=== PATIENT | male | born 1955 | race African-American/Black ===

== ENCOUNTER 2021-12-01 18:18 | Emergency (ER) | payer OTHER ==
[2021-12-01 18:42] VITALS: BP 166/66; PULSE 70; RESP 20; TEMP 98.7; BMI 30.1
== END 2021-12-01 22:04 | disposition short-term general hospital (02) ==
LOC: JER 18:18
DX: R22.41 Localized swelling, mass and lump, right lower limb (principal); R10.9 Unspecified abdominal pain
CPT/HCPCS: 0241U-QW; 74176-TC; 82962; 93005; 93010; 93971-TC; 99285-25

== ENCOUNTER 2021-12-01 22:21 | Inpatient (IN) | payer OTHER ==
[2021-12-01 15:35] VITALS: BMI 30.4
[~2021-12-01 22:21] MED LIST: ACETAMINOPHEN 325 MG TABLET (FP) PO PRN; BENZOCAINE/MENTHOL (CHLORASEPTIC ) LOZENGE MM PRN; BISMUTH SUBSALICYLATE 524 MG/30 ML PO PRN; DICYCLOMINE HCL 10 MG CAPSULE PO PRN; IBUPROFEN 400 MG TABLET (FP) PO PRN; IBUPROFEN 600 MG TABLET (FP) PO PRN; LOPERAMIDE HCL 2 MG CAPSULE PO PRN; MAGNESIUM CITRATE 300 ML BOTTLE PO PRN; MAGNESIUM HYDROX 2400MG/30ML ORAL SUSPENSION 30 ML CUP PO PRN; NALOXONE HCL (KLOXXADO) 8 MG SPRAY NS PRN; NALOXONE HCL 0.4 MG/ML VIAL IM PRN; ONDANSETRON *ODT* 4 MG TABLET SL PRN; P-EPHED 60MG/TRIPROLIDI 2.5MG TABLET PO PRN; guaiFENesin 200 MG/10 ML 10 ML UNIT-DOSE CUPS PO PRN; hydrOXYzine PAMOATE 25 MG CAPSULE (FP) PO PRN
[2021-12-02] MEDS: INSULIN SLIDING SCALE (NOVOLOG) 1 VIAL SQ SCH ×2 (06:20→17:49)
[2021-12-02] MEDS ORDERED: methaDONE HCL 10 MG TABLET PO ONE (10:26)
[2021-12-02] MEDS ORDERED: methaDONE 80 MG, methaDONE 20 MG PO ONE (10:45)
[2021-12-02 10:47] LABS: CALCIUM 9.2 mg/dL (8.5-10.1)
[2021-12-02 10:48] LABS: BLOOD UREA NITROGEN 9.6 mg/dL (7-18)
[2021-12-02 10:50] LABS: CREATININE 0.9 mg/dL (0.55-1.3)
[2021-12-02] MEDS: PRENATAL VITAMINS W/ FOLIC ACID TABLET (FP) PO SCH (10:50)
[2021-12-02 10:51] LABS: TOT PROT 6.3 g/dl (6.4-8.2)
[2021-12-02 10:53] LABS: BILIRUBIN,TOTAL 0.6 mg/dL (0.2-1)
[2021-12-02 10:55] LABS: HEMATOCRIT 36.2 % (35.4-49); HEMOGLOBIN 11.6 GM/dL (11.7-16.9); MCH 26.9 pg (25.7-33.7); MEAN CELL VOLUME 83.9 fl (80-96); MEAN PLT VOLUME 9.9 fl (7.5-11.1); PLATELET COUNT 210 10^3/uL (134-434); RBC 4.32 M/mm3 (4.00-5.60); RDW 15.4 % (11.9-15.9); WHITE BLOOD COUNT 4.8 K/mm3 (4.0-10.0)
[2021-12-02] MEDS ORDERED: diazePAM 5 MG TABLET PO PRN (11:00)
[2021-12-02] MEDS: diazePAM 5 MG TABLET PO SCH ×3 (11:39→22:34)
[2021-12-02] MEDS: THIAMINE HCL 100 MG TABLET (FP) PO SCH (22:34)
[2021-12-03] MEDS ORDERED: methaDONE HCL 10 MG TABLET PO SCH (06:00)
[2021-12-03] MEDS: methaDONE 80 MG, methaDONE 20 MG PO SCH (06:18)
[2021-12-03] MEDS: diazePAM 5 MG TABLET PO SCH ×4 (06:19→22:27)
[2021-12-03] MEDS: INSULIN SLIDING SCALE (NOVOLOG) 1 VIAL SQ SCH ×2 (06:20→17:45)
[2021-12-03] MEDS: metFORMIN HCL 500 MG TABLET (FP) PO SCH (06:20)
[2021-12-03] MEDS: MAG HYDROX/AL HYDROX/SIMETH 30 ML UNIT-DOSE CUP PO PRN ×2 (06:23→22:27)
[2021-12-03] MEDS ORDERED: metFORMIN HCL 500 MG TABLET (FP) PO SCH (10:00)
[2021-12-03] MEDS: PRENATAL VITAMINS W/ FOLIC ACID TABLET (FP) PO SCH (10:32)
[2021-12-03] MEDS: amLODIPine BESYLATE 5 MG TABLET (FP) PO SCH (10:33)
[2021-12-03] MEDS: THIAMINE HCL 100 MG TABLET (FP) PO SCH (22:26)
[2021-12-03] MEDS: MELATONIN 5 MG TABLETS PO PRN (22:27)
[2021-12-04] MEDS: metFORMIN HCL 500 MG TABLET (FP) PO SCH (06:29)
[2021-12-04] MEDS: methaDONE 80 MG, methaDONE 20 MG PO SCH (06:29)
[2021-12-04] MEDS: diazePAM 5 MG TABLET PO SCH ×3 (06:30→22:32)
[2021-12-04] MEDS: INSULIN SLIDING SCALE (NOVOLOG) 1 VIAL SQ SCH ×2 (06:35→16:59)
[2021-12-04] MEDS: PRENATAL VITAMINS W/ FOLIC ACID TABLET (FP) PO SCH (09:06)
[2021-12-04] MEDS: amLODIPine BESYLATE 5 MG TABLET (FP) PO SCH (09:06)
[2021-12-04] MEDS: FAMOTIDINE 20 MG TABLET PO SCH ×2 (12:36→22:31)
[2021-12-04] MEDS ORDERED: metFORMIN HCL 500 MG TABLET (FP) PO SCH (16:30)
[2021-12-04] MEDS: MELATONIN 5 MG TABLETS PO PRN (22:31)
[2021-12-04] MEDS: THIAMINE HCL 100 MG TABLET (FP) PO SCH (22:32)
[2021-12-05] MEDS: diazePAM 5 MG TABLET PO SCH ×2 (06:24→17:47)
[2021-12-05] MEDS: methaDONE 80 MG, methaDONE 20 MG PO SCH (06:24)
[2021-12-05] MEDS: INSULIN SLIDING SCALE (NOVOLOG) 1 VIAL SQ SCH ×2 (06:25→16:57)
[2021-12-05] MEDS: metFORMIN HCL 500 MG TABLET (FP) PO SCH (06:25)
[2021-12-05] MEDS ORDERED: amLODIPine BESYLATE 10 MG TABLET (FP) PO SCH (10:00)
[2021-12-05] MEDS: FAMOTIDINE 20 MG TABLET PO SCH ×2 (10:33→22:33)
[2021-12-05] MEDS: PRENATAL VITAMINS W/ FOLIC ACID TABLET (FP) PO SCH (10:33)
[2021-12-05] MEDS: ASPIRIN 81 MG CHEWABLE TABLETS PO SCH (11:26)
[2021-12-05] MEDS ORDERED: PATIENT'S OWN MEDICATION (NON-FORMULARY) (Lisinopril/Hydrochlorothiazide [Lisinopril-Hctz PO SCH (13:00)
[2021-12-05] MEDS ORDERED: DOCUSATE SODIUM 100 MG CAPSULE (FP) PO PRN (13:00)
[2021-12-05] MEDS ORDERED: ALBUTEROL SO4 HFA INHALER IH PRN (13:56)
[2021-12-05] MEDS ORDERED: HYDROCHLOROTHIAZIDE 25 MG TABLET (FP) PO ONE (14:15)
[2021-12-05] MEDS ORDERED: LISINOPRIL 20 MG TABLET PO ONE (14:15)
[2021-12-05] MEDS: TAMSULOSIN HCL 0.4 MG CAP PO SCH (14:45)
[2021-12-05] MEDS: sitaGLIPtin PHOSPHATE 50 MG TABLET PO SCH (14:46)
[2021-12-05] MEDS: BUDESONIDE/FORMETEROL FUMARATE 160/4.5 mcg INHALER IH SCH ×2 (14:48→22:34)
[2021-12-05] MEDS: AMMONIUM LACTATE 12% CREAM 140 GM TUBE TP SCH (14:49)
[2021-12-05] MEDS ORDERED: LISINOPRIL 5 MG TABLET PO ONE (21:51)
[2021-12-05] MEDS ORDERED: DOCUSATE SODIUM 100 MG CAPSULE (FP) PO SCH (22:00)
[2021-12-05] MEDS: THIAMINE HCL 100 MG TABLET (FP) PO SCH (22:33)
[2021-12-05] MEDS: MELATONIN 5 MG TABLETS PO PRN (22:33)
[2021-12-06] MEDS: methaDONE 80 MG, methaDONE 20 MG PO SCH (05:47)
[2021-12-06] MEDS ORDERED: diazePAM 5 MG TABLET PO ONE (06:00)
[2021-12-06] MEDS: sitaGLIPtin PHOSPHATE 50 MG TABLET PO SCH (06:16)
[2021-12-06] MEDS: metFORMIN HCL 500 MG TABLET (FP) PO SCH (06:16)
[2021-12-06] MEDS ORDERED: ERGOCALCIFEROL (VIT D2) 50,000 UNIT (1.25 MG) CAPSULE PO SCH (10:00)
[2021-12-06] MEDS ORDERED: HYDROCHLOROTHIAZIDE 25 MG TABLET (FP) PO SCH (10:00)
[2021-12-06] MEDS ORDERED: LISINOPRIL 20 MG TABLET PO SCH (10:00)
[2021-12-06] MEDS: PRENATAL VITAMINS W/ FOLIC ACID TABLET (FP) PO SCH (10:32)
[2021-12-06] MEDS: BUDESONIDE/FORMETEROL FUMARATE 160/4.5 mcg INHALER IH SCH (10:33)
[2021-12-06] MEDS: AMMONIUM LACTATE 12% CREAM 140 GM TUBE TP SCH (10:33)
[2021-12-06] MEDS: FAMOTIDINE 20 MG TABLET PO SCH (10:33)
[2021-12-06] MEDS: ASPIRIN 81 MG CHEWABLE TABLETS PO SCH (10:33)
[2021-12-06] MEDS: TAMSULOSIN HCL 0.4 MG CAP PO SCH (10:35)
[2021-12-06 17:33] VITALS: BP 140/50; PULSE 62; RESP 18; TEMP 97.3
== END 2021-12-06 18:10 | disposition other institution (70) | DRG 897 ==
LOC: YASAS 22:21 → Y6N 22:38 → UNDOADMIN 22:38
PROVIDERS: ADMIT Allergy & Immunology; ATTEND Surgery
PROC: HZ2ZZZZ Detoxification Services for Substance Abuse Treatment (ICD-10-PCS; principal; 2021-12-01)
DX: F10.230 Alcohol dependence with withdrawal, uncomplicated (principal); F11.20 Opioid dependence, uncomplicated; F13.2 Sedative, hypnotic or anxiolytic-related dependence; F17.210 Nicotine dependence, cigarettes, uncomplicated; I10 Essential (primary) hypertension; E11.9 Type 2 diabetes mellitus without complications; Z79.84 Long term (current) use of oral hypoglycemic drugs; K21.9 Gastro-esophageal reflux disease without esophagitis; R26.89 Other abnormalities of gait and mobility; R22.41 Localized swelling, mass and lump, right lower limb
CPT/HCPCS: 36415; 80053; 82962; 85027; 86780; 87811; C9803-CS; U0003; U0005

== ENCOUNTER 2021-12-06 15:31 | Inpatient (IN) | payer OTHER ==
[2021-12-06] MEDS ORDERED: IBUPROFEN 400 MG TABLET (FP) PO PRN (18:26)
[2021-12-06] MEDS ORDERED: MAG HYDROX/AL HYDROX/SIMETH 30 ML UNIT-DOSE CUP PO PRN (18:26)
[2021-12-06] MEDS ORDERED: BENZOCAINE/MENTHOL (CHLORASEPTIC ) LOZENGE MM PRN (18:26)
[2021-12-06] MEDS ORDERED: MAGNESIUM HYDROX 2400MG/30ML ORAL SUSPENSION 30 ML CUP PO PRN (18:26)
[2021-12-06] MEDS ORDERED: guaiFENesin 200 MG/10 ML 10 ML UNIT-DOSE CUPS PO PRN (18:26)
[2021-12-06] MEDS ORDERED: MAGNESIUM CITRATE 300 ML BOTTLE PO PRN (18:26)
[2021-12-06] MEDS ORDERED: NICOTINE 10 MG CARTRIDGE (INHALER) IH PRN (18:26)
[2021-12-06] MEDS ORDERED: LOPERAMIDE HCL 2 MG CAPSULE PO PRN (18:26)
[2021-12-06] MEDS ORDERED: P-EPHED 60MG/TRIPROLIDI 2.5MG TABLET PO PRN (18:26)
[2021-12-06] MEDS ORDERED: ALBUTEROL SO4 HFA INHALER IH PRN (18:41)
[2021-12-06] MEDS: hydrOXYzine PAMOATE 25 MG CAPSULE (FP) PO PRN (21:44)
[2021-12-06] MEDS: MELATONIN 5 MG TABLETS PO SCH (21:45)
[2021-12-06] MEDS: THIAMINE HCL 100 MG TABLET (FP) PO SCH (21:45)
[2021-12-06] MEDS: BUDESONIDE/FORMETEROL FUMARATE 160/4.5 mcg INHALER IH SCH (21:47)
[2021-12-07] MEDS ORDERED: methaDONE HCL 40 MG DISPERSABLE TABLET PO SCH (06:00)
[2021-12-07] MEDS: metFORMIN HCL 500 MG TABLET (FP) PO SCH (06:17)
[2021-12-07] MEDS: methaDONE 80 MG, methaDONE 20 MG PO SCH (06:17)
[2021-12-07] MEDS: sitaGLIPtin PHOSPHATE 50 MG TABLET PO SCH (06:20)
[2021-12-07] MEDS: TAMSULOSIN HCL 0.4 MG CAP PO SCH (09:27)
[2021-12-07] MEDS: DOCUSATE SODIUM 100 MG CAPSULE (FP) PO SCH (09:27)
[2021-12-07] MEDS: PRENATAL VITAMINS W/ FOLIC ACID TABLET (FP) PO SCH (09:28)
[2021-12-07] MEDS: FAMOTIDINE 20 MG TABLET PO SCH (09:28)
[2021-12-07] MEDS: HYDROCHLOROTHIAZIDE 25 MG TABLET (FP) PO SCH (09:28)
[2021-12-07] MEDS: NICOTINE 7 MG/24 HOURS TOPICAL PATCH TD SCH (09:28)
[2021-12-07] MEDS ORDERED: PATIENT'S OWN MEDICATION (NON-FORMULARY) (Lisinopril/Hydrochlorothiazide [Lisinopril-Hctz PO SCH (10:00)
[2021-12-07] MEDS ORDERED: PATIENT'S OWN MEDICATION (NON-FORMULARY) (Ammonium Lactate Cream 1 APPLIC Tube) TP SCH (10:00)
[2021-12-07] MEDS: BUDESONIDE/FORMETEROL FUMARATE 160/4.5 mcg INHALER IH SCH ×2 (10:11→21:23)
[2021-12-07] MEDS: THIAMINE HCL 100 MG TABLET (FP) PO SCH (21:23)
[2021-12-07] MEDS: hydrOXYzine PAMOATE 25 MG CAPSULE (FP) PO PRN (21:23)
[2021-12-07] MEDS: MELATONIN 5 MG TABLETS PO SCH (21:23)
[2021-12-07] MEDS: ACETAMINOPHEN 325 MG TABLET (FP) PO PRN (21:24)
[2021-12-08] MEDS: methaDONE 80 MG, methaDONE 20 MG PO SCH (06:36)
[2021-12-08] MEDS: sitaGLIPtin PHOSPHATE 50 MG TABLET PO SCH (06:36)
[2021-12-08] MEDS: metFORMIN HCL 500 MG TABLET (FP) PO SCH (06:36)
[2021-12-08] MEDS: PRENATAL VITAMINS W/ FOLIC ACID TABLET (FP) PO SCH (09:47)
[2021-12-08] MEDS: FAMOTIDINE 20 MG TABLET PO SCH (09:47)
[2021-12-08] MEDS: HYDROCHLOROTHIAZIDE 25 MG TABLET (FP) PO SCH (09:47)
[2021-12-08] MEDS: DOCUSATE SODIUM 100 MG CAPSULE (FP) PO SCH (09:47)
[2021-12-08] MEDS: TAMSULOSIN HCL 0.4 MG CAP PO SCH (09:47)
[2021-12-08] MEDS: BUDESONIDE/FORMETEROL FUMARATE 160/4.5 mcg INHALER IH SCH ×2 (09:48→21:46)
[2021-12-08] MEDS: NICOTINE 7 MG/24 HOURS TOPICAL PATCH TD SCH (09:49)
[2021-12-08] MEDS: hydrOXYzine PAMOATE 25 MG CAPSULE (FP) PO PRN (21:45)
[2021-12-08] MEDS: THIAMINE HCL 100 MG TABLET (FP) PO SCH (21:46)
[2021-12-08] MEDS: MELATONIN 5 MG TABLETS PO SCH (21:46)
[2021-12-09] MEDS: metFORMIN HCL 500 MG TABLET (FP) PO SCH (06:33)
[2021-12-09] MEDS: sitaGLIPtin PHOSPHATE 50 MG TABLET PO SCH (06:33)
[2021-12-09] MEDS: methaDONE 80 MG, methaDONE 20 MG PO SCH (06:33)
[2021-12-09] MEDS: ACETAMINOPHEN 325 MG TABLET (FP) PO PRN (06:36)
[2021-12-09] MEDS: FAMOTIDINE 20 MG TABLET PO SCH (09:46)
[2021-12-09] MEDS: DOCUSATE SODIUM 100 MG CAPSULE (FP) PO SCH (09:46)
[2021-12-09] MEDS: HYDROCHLOROTHIAZIDE 25 MG TABLET (FP) PO SCH (09:46)
[2021-12-09] MEDS: TAMSULOSIN HCL 0.4 MG CAP PO SCH (09:46)
[2021-12-09] MEDS: NICOTINE 7 MG/24 HOURS TOPICAL PATCH TD SCH (09:47)
[2021-12-09] MEDS: PRENATAL VITAMINS W/ FOLIC ACID TABLET (FP) PO SCH (09:47)
[2021-12-09] MEDS: BUDESONIDE/FORMETEROL FUMARATE 160/4.5 mcg INHALER IH SCH ×2 (09:47→21:25)
[2021-12-09] MEDS ORDERED: NICOTINE 7 MG/24 HOURS TOPICAL PATCH TD PRN (13:18)
[2021-12-09] MEDS: hydrOXYzine PAMOATE 25 MG CAPSULE (FP) PO PRN (21:24)
[2021-12-09] MEDS: THIAMINE HCL 100 MG TABLET (FP) PO SCH (21:25)
[2021-12-09] MEDS: MELATONIN 5 MG TABLETS PO SCH (21:25)
[2021-12-10] MEDS: methaDONE 80 MG, methaDONE 20 MG PO SCH (06:41)
[2021-12-10] MEDS: metFORMIN HCL 500 MG TABLET (FP) PO SCH (06:41)
[2021-12-10] MEDS: sitaGLIPtin PHOSPHATE 50 MG TABLET PO SCH (06:41)
[2021-12-10] MEDS: BUDESONIDE/FORMETEROL FUMARATE 160/4.5 mcg INHALER IH SCH ×2 (10:28→21:22)
[2021-12-10] MEDS: PRENATAL VITAMINS W/ FOLIC ACID TABLET (FP) PO SCH (10:28)
[2021-12-10] MEDS: HYDROCHLOROTHIAZIDE 25 MG TABLET (FP) PO SCH (10:29)
[2021-12-10] MEDS: TAMSULOSIN HCL 0.4 MG CAP PO SCH (10:29)
[2021-12-10] MEDS: FAMOTIDINE 20 MG TABLET PO SCH ×2 (10:29→21:21)
[2021-12-10] MEDS: DOCUSATE SODIUM 100 MG CAPSULE (FP) PO SCH (10:29)
[2021-12-10] MEDS: ASPIRIN 81 MG CHEWABLE TABLETS PO SCH (15:07)
[2021-12-10] MEDS: MELATONIN 5 MG TABLETS PO SCH (21:20)
[2021-12-10] MEDS: THIAMINE HCL 100 MG TABLET (FP) PO SCH (21:20)
[2021-12-10] MEDS: hydrOXYzine PAMOATE 25 MG CAPSULE (FP) PO PRN (21:21)
[2021-12-10] MEDS: ACETAMINOPHEN 325 MG TABLET (FP) PO PRN (21:22)
[2021-12-11] MEDS: metFORMIN HCL 500 MG TABLET (FP) PO SCH (06:34)
[2021-12-11] MEDS: sitaGLIPtin PHOSPHATE 50 MG TABLET PO SCH (06:34)
[2021-12-11] MEDS: methaDONE 80 MG, methaDONE 20 MG PO SCH (06:34)
[2021-12-11] MEDS: ACETAMINOPHEN 325 MG TABLET (FP) PO PRN (06:36)
[2021-12-11] MEDS: TAMSULOSIN HCL 0.4 MG CAP PO SCH (09:44)
[2021-12-11] MEDS: ASPIRIN 81 MG CHEWABLE TABLETS PO SCH (09:44)
[2021-12-11] MEDS: FAMOTIDINE 20 MG TABLET PO SCH ×2 (09:45→21:01)
[2021-12-11] MEDS: HYDROCHLOROTHIAZIDE 25 MG TABLET (FP) PO SCH (09:45)
[2021-12-11] MEDS: PRENATAL VITAMINS W/ FOLIC ACID TABLET (FP) PO SCH (09:45)
[2021-12-11] MEDS: DOCUSATE SODIUM 100 MG CAPSULE (FP) PO SCH (09:45)
[2021-12-11] MEDS: BUDESONIDE/FORMETEROL FUMARATE 160/4.5 mcg INHALER IH SCH ×2 (09:46→21:01)
[2021-12-11] MEDS: METHYL SALICYLATE/MENTHOL OINT 30 GM TUBE TP SCH ×2 (12:39→21:01)
[2021-12-11] MEDS: MELATONIN 5 MG TABLETS PO SCH (21:00)
[2021-12-11] MEDS: THIAMINE HCL 100 MG TABLET (FP) PO SCH (21:00)
[2021-12-11] MEDS: hydrOXYzine PAMOATE 25 MG CAPSULE (FP) PO PRN (21:01)
[2021-12-12] MEDS: metFORMIN HCL 500 MG TABLET (FP) PO SCH (06:40)
[2021-12-12] MEDS: methaDONE 80 MG, methaDONE 20 MG PO SCH (06:40)
[2021-12-12] MEDS: sitaGLIPtin PHOSPHATE 50 MG TABLET PO SCH (06:40)
[2021-12-12] MEDS: ACETAMINOPHEN 325 MG TABLET (FP) PO PRN ×2 (06:42→21:29)
[2021-12-12] MEDS: HYDROCHLOROTHIAZIDE 25 MG TABLET (FP) PO SCH (09:46)
[2021-12-12] MEDS: ASPIRIN 81 MG CHEWABLE TABLETS PO SCH (09:46)
[2021-12-12] MEDS: DOCUSATE SODIUM 100 MG CAPSULE (FP) PO SCH (09:46)
[2021-12-12] MEDS: PRENATAL VITAMINS W/ FOLIC ACID TABLET (FP) PO SCH (09:46)
[2021-12-12] MEDS: FAMOTIDINE 20 MG TABLET PO SCH ×2 (09:46→21:29)
[2021-12-12] MEDS: TAMSULOSIN HCL 0.4 MG CAP PO SCH (09:46)
[2021-12-12] MEDS: BUDESONIDE/FORMETEROL FUMARATE 160/4.5 mcg INHALER IH SCH ×2 (09:47→21:31)
[2021-12-12] MEDS: METHYL SALICYLATE/MENTHOL OINT 30 GM TUBE TP SCH ×2 (09:48→21:29)
[2021-12-12] MEDS: MELATONIN 5 MG TABLETS PO SCH (21:29)
[2021-12-12] MEDS: THIAMINE HCL 100 MG TABLET (FP) PO SCH (21:29)
[2021-12-13] MEDS: methaDONE 80 MG, methaDONE 20 MG PO SCH (06:32)
[2021-12-13] MEDS: sitaGLIPtin PHOSPHATE 50 MG TABLET PO SCH (06:32)
[2021-12-13] MEDS: metFORMIN HCL 500 MG TABLET (FP) PO SCH (06:32)
[2021-12-13] MEDS: ACETAMINOPHEN 325 MG TABLET (FP) PO PRN (06:36)
[2021-12-13] MEDS: HYDROCHLOROTHIAZIDE 25 MG TABLET (FP) PO SCH (09:56)
[2021-12-13] MEDS: hydrOXYzine PAMOATE 25 MG CAPSULE (FP) PO PRN (09:56)
[2021-12-13] MEDS: FAMOTIDINE 20 MG TABLET PO SCH ×2 (09:56→21:32)
[2021-12-13] MEDS: PRENATAL VITAMINS W/ FOLIC ACID TABLET (FP) PO SCH (09:56)
[2021-12-13] MEDS: TAMSULOSIN HCL 0.4 MG CAP PO SCH (09:56)
[2021-12-13] MEDS: ASPIRIN 81 MG CHEWABLE TABLETS PO SCH (09:56)
[2021-12-13] MEDS: DOCUSATE SODIUM 100 MG CAPSULE (FP) PO SCH (09:56)
[2021-12-13] MEDS: METHYL SALICYLATE/MENTHOL OINT 30 GM TUBE TP SCH ×2 (09:57→21:32)
[2021-12-13] MEDS: BUDESONIDE/FORMETEROL FUMARATE 160/4.5 mcg INHALER IH SCH ×2 (09:57→21:32)
[2021-12-13] MEDS: MELATONIN 5 MG TABLETS PO SCH (21:32)
[2021-12-13] MEDS: THIAMINE HCL 100 MG TABLET (FP) PO SCH (21:32)
[2021-12-14] MEDS ORDERED: methaDONE HCL 10 MG TABLET PO SCH (06:00)
[2021-12-14] MEDS: sitaGLIPtin PHOSPHATE 50 MG TABLET PO SCH (06:30)
[2021-12-14] MEDS: metFORMIN HCL 500 MG TABLET (FP) PO SCH (06:30)
[2021-12-14] MEDS: methaDONE 80 MG, methaDONE 20 MG PO SCH (06:30)
[2021-12-14] MEDS: ACETAMINOPHEN 325 MG TABLET (FP) PO PRN ×3 (06:32→21:25)
[2021-12-14] MEDS: ASPIRIN 81 MG CHEWABLE TABLETS PO SCH (09:59)
[2021-12-14] MEDS: FAMOTIDINE 20 MG TABLET PO SCH ×2 (09:59→21:25)
[2021-12-14] MEDS: METHYL SALICYLATE/MENTHOL OINT 30 GM TUBE TP SCH ×2 (09:59→21:48)
[2021-12-14] MEDS: hydrOXYzine PAMOATE 25 MG CAPSULE (FP) PO PRN (09:59)
[2021-12-14] MEDS: TAMSULOSIN HCL 0.4 MG CAP PO SCH (10:00)
[2021-12-14] MEDS: HYDROCHLOROTHIAZIDE 25 MG TABLET (FP) PO SCH (10:00)
[2021-12-14] MEDS: PRENATAL VITAMINS W/ FOLIC ACID TABLET (FP) PO SCH (10:00)
[2021-12-14] MEDS: BUDESONIDE/FORMETEROL FUMARATE 160/4.5 mcg INHALER IH SCH ×2 (10:00→21:49)
[2021-12-14] MEDS: DOCUSATE SODIUM 100 MG CAPSULE (FP) PO SCH (10:00)
[2021-12-14] MEDS: MELATONIN 5 MG TABLETS PO SCH (21:25)
[2021-12-14] MEDS: THIAMINE HCL 100 MG TABLET (FP) PO SCH (21:25)
[2021-12-15] MEDS: methaDONE 80 MG, methaDONE 20 MG PO SCH (06:44)
[2021-12-15] MEDS: metFORMIN HCL 500 MG TABLET (FP) PO SCH (06:44)
[2021-12-15] MEDS: sitaGLIPtin PHOSPHATE 50 MG TABLET PO SCH (06:44)
[2021-12-15] MEDS: ACETAMINOPHEN 325 MG TABLET (FP) PO PRN ×2 (06:45→21:24)
[2021-12-15] MEDS: ASPIRIN 81 MG CHEWABLE TABLETS PO SCH (09:52)
[2021-12-15] MEDS: METHYL SALICYLATE/MENTHOL OINT 30 GM TUBE TP SCH ×2 (09:52→21:23)
[2021-12-15] MEDS: DOCUSATE SODIUM 100 MG CAPSULE (FP) PO SCH (09:53)
[2021-12-15] MEDS: TAMSULOSIN HCL 0.4 MG CAP PO SCH (09:53)
[2021-12-15] MEDS: FAMOTIDINE 20 MG TABLET PO SCH ×2 (09:54→21:23)
[2021-12-15] MEDS: PRENATAL VITAMINS W/ FOLIC ACID TABLET (FP) PO SCH (09:54)
[2021-12-15] MEDS: HYDROCHLOROTHIAZIDE 25 MG TABLET (FP) PO SCH (09:54)
[2021-12-15] MEDS: BUDESONIDE/FORMETEROL FUMARATE 160/4.5 mcg INHALER IH SCH ×2 (09:55→21:42)
[2021-12-15] MEDS: THIAMINE HCL 100 MG TABLET (FP) PO SCH (21:22)
[2021-12-15] MEDS: MELATONIN 5 MG TABLETS PO SCH (21:22)
[2021-12-15] MEDS: hydrOXYzine PAMOATE 25 MG CAPSULE (FP) PO PRN (21:23)
[2021-12-16] MEDS: methaDONE 80 MG, methaDONE 20 MG PO SCH (06:15)
[2021-12-16] MEDS: metFORMIN HCL 500 MG TABLET (FP) PO SCH (06:18)
[2021-12-16] MEDS: sitaGLIPtin PHOSPHATE 50 MG TABLET PO SCH (06:18)
[2021-12-16] MEDS: METHYL SALICYLATE/MENTHOL OINT 30 GM TUBE TP SCH ×2 (10:05→21:20)
[2021-12-16] MEDS: ASPIRIN 81 MG CHEWABLE TABLETS PO SCH (10:05)
[2021-12-16] MEDS: HYDROCHLOROTHIAZIDE 25 MG TABLET (FP) PO SCH (10:06)
[2021-12-16] MEDS: TAMSULOSIN HCL 0.4 MG CAP PO SCH (10:06)
[2021-12-16] MEDS: BUDESONIDE/FORMETEROL FUMARATE 160/4.5 mcg INHALER IH SCH ×2 (10:06→21:19)
[2021-12-16] MEDS: DOCUSATE SODIUM 100 MG CAPSULE (FP) PO SCH (10:06)
[2021-12-16] MEDS: FAMOTIDINE 20 MG TABLET PO SCH ×2 (10:06→21:19)
[2021-12-16] MEDS: PRENATAL VITAMINS W/ FOLIC ACID TABLET (FP) PO SCH (10:07)
[2021-12-16] MEDS: ACETAMINOPHEN 325 MG TABLET (FP) PO PRN (10:08)
[2021-12-16] MEDS: BACLOFEN 10 MG TABLET (FP) PO SCH ×2 (17:02→21:19)
[2021-12-16] MEDS: MELATONIN 5 MG TABLETS PO SCH (21:19)
[2021-12-16] MEDS: THIAMINE HCL 100 MG TABLET (FP) PO SCH (21:19)
[2021-12-16] MEDS: hydrOXYzine PAMOATE 25 MG CAPSULE (FP) PO PRN (21:19)
[2021-12-16] MEDS: SENNOSIDES 8.6MG TABLET (FP) PO SCH (21:20)
[2021-12-16] MEDS: PSYLLIUM 5.85 GM PACKET PO SCH (21:20)
[2021-12-17] MEDS: BACLOFEN 10 MG TABLET (FP) PO SCH ×3 (06:35→21:19)
[2021-12-17] MEDS: metFORMIN HCL 500 MG TABLET (FP) PO SCH (06:36)
[2021-12-17] MEDS: methaDONE 80 MG, methaDONE 20 MG PO SCH (06:36)
[2021-12-17] MEDS: sitaGLIPtin PHOSPHATE 50 MG TABLET PO SCH (07:02)
[2021-12-17] MEDS: ASPIRIN 81 MG CHEWABLE TABLETS PO SCH (09:30)
[2021-12-17] MEDS: METHYL SALICYLATE/MENTHOL OINT 30 GM TUBE TP SCH ×2 (09:30→21:19)
[2021-12-17] MEDS: DOCUSATE SODIUM 100 MG CAPSULE (FP) PO SCH (09:30)
[2021-12-17] MEDS: TAMSULOSIN HCL 0.4 MG CAP PO SCH (09:31)
[2021-12-17] MEDS: FAMOTIDINE 20 MG TABLET PO SCH ×2 (09:31→21:19)
[2021-12-17] MEDS: HYDROCHLOROTHIAZIDE 25 MG TABLET (FP) PO SCH (09:31)
[2021-12-17] MEDS: PSYLLIUM 5.85 GM PACKET PO SCH (09:32)
[2021-12-17] MEDS ORDERED: PSYLLIUM 5.85 GM PACKET PO PRN (09:40)
[2021-12-17] MEDS: PRENATAL VITAMINS W/ FOLIC ACID TABLET (FP) PO SCH (10:00)
[2021-12-17] MEDS: BUDESONIDE/FORMETEROL FUMARATE 160/4.5 mcg INHALER IH SCH ×2 (10:00→21:20)
[2021-12-17] MEDS: MELATONIN 5 MG TABLETS PO SCH (21:19)
[2021-12-17] MEDS: SENNOSIDES 8.6MG TABLET (FP) PO SCH (21:19)
[2021-12-17] MEDS: THIAMINE HCL 100 MG TABLET (FP) PO SCH (21:19)
[2021-12-18] MEDS: methaDONE 80 MG, methaDONE 20 MG PO SCH (06:29)
[2021-12-18] MEDS: metFORMIN HCL 500 MG TABLET (FP) PO SCH (06:30)
[2021-12-18] MEDS: sitaGLIPtin PHOSPHATE 50 MG TABLET PO SCH (06:30)
[2021-12-18] MEDS: BACLOFEN 10 MG TABLET (FP) PO SCH ×3 (06:30→21:21)
[2021-12-18] MEDS: HYDROCHLOROTHIAZIDE 25 MG TABLET (FP) PO SCH (09:56)
[2021-12-18] MEDS: TAMSULOSIN HCL 0.4 MG CAP PO SCH (09:56)
[2021-12-18] MEDS: FAMOTIDINE 20 MG TABLET PO SCH ×2 (09:56→21:22)
[2021-12-18] MEDS: ASPIRIN 81 MG CHEWABLE TABLETS PO SCH (09:56)
[2021-12-18] MEDS: DOCUSATE SODIUM 100 MG CAPSULE (FP) PO SCH (09:56)
[2021-12-18] MEDS: PRENATAL VITAMINS W/ FOLIC ACID TABLET (FP) PO SCH (09:56)
[2021-12-18] MEDS: BUDESONIDE/FORMETEROL FUMARATE 160/4.5 mcg INHALER IH SCH ×2 (09:57→21:22)
[2021-12-18] MEDS: METHYL SALICYLATE/MENTHOL OINT 30 GM TUBE TP SCH ×2 (09:57→21:22)
[2021-12-18] MEDS: THIAMINE HCL 100 MG TABLET (FP) PO SCH (21:21)
[2021-12-18] MEDS: SENNOSIDES 8.6MG TABLET (FP) PO SCH (21:21)
[2021-12-18] MEDS: MELATONIN 5 MG TABLETS PO SCH (21:21)
[2021-12-19] MEDS: metFORMIN HCL 500 MG TABLET (FP) PO SCH (06:26)
[2021-12-19] MEDS: sitaGLIPtin PHOSPHATE 50 MG TABLET PO SCH (06:26)
[2021-12-19] MEDS: methaDONE 80 MG, methaDONE 20 MG PO SCH (06:26)
[2021-12-19] MEDS: BACLOFEN 10 MG TABLET (FP) PO SCH (06:26)
[2021-12-19] MEDS: ASPIRIN 81 MG CHEWABLE TABLETS PO SCH (09:58)
[2021-12-19] MEDS: TAMSULOSIN HCL 0.4 MG CAP PO SCH (09:58)
[2021-12-19] MEDS: PRENATAL VITAMINS W/ FOLIC ACID TABLET (FP) PO SCH (09:58)
[2021-12-19] MEDS: DOCUSATE SODIUM 100 MG CAPSULE (FP) PO SCH (09:58)
[2021-12-19] MEDS: BUDESONIDE/FORMETEROL FUMARATE 160/4.5 mcg INHALER IH SCH ×2 (09:58→21:50)
[2021-12-19] MEDS: FAMOTIDINE 20 MG TABLET PO SCH ×2 (09:58→21:48)
[2021-12-19] MEDS: HYDROCHLOROTHIAZIDE 25 MG TABLET (FP) PO SCH (09:58)
[2021-12-19] MEDS: METHYL SALICYLATE/MENTHOL OINT 30 GM TUBE TP SCH ×2 (09:59→21:49)
[2021-12-19] MEDS: GABAPENTIN 100 MG CAPSULE PO SCH ×2 (14:31→21:48)
[2021-12-19] MEDS: hydrOXYzine PAMOATE 25 MG CAPSULE (FP) PO PRN (21:48)
[2021-12-19] MEDS: THIAMINE HCL 100 MG TABLET (FP) PO SCH (21:48)
[2021-12-19] MEDS: SENNOSIDES 8.6MG TABLET (FP) PO SCH (21:48)
[2021-12-19] MEDS: MELATONIN 5 MG TABLETS PO SCH (21:49)
[2021-12-20] MEDS: metFORMIN HCL 500 MG TABLET (FP) PO SCH (06:22)
[2021-12-20] MEDS: methaDONE 80 MG, methaDONE 20 MG PO SCH (06:23)
[2021-12-20] MEDS: GABAPENTIN 100 MG CAPSULE PO SCH ×2 (06:23→14:26)
[2021-12-20] MEDS: ACETAMINOPHEN 325 MG TABLET (FP) PO PRN ×2 (06:26→21:12)
[2021-12-20] MEDS: sitaGLIPtin PHOSPHATE 50 MG TABLET PO SCH (06:36)
[2021-12-20] MEDS: DOCUSATE SODIUM 100 MG CAPSULE (FP) PO SCH (10:26)
[2021-12-20] MEDS: PRENATAL VITAMINS W/ FOLIC ACID TABLET (FP) PO SCH (10:26)
[2021-12-20] MEDS: ASPIRIN 81 MG CHEWABLE TABLETS PO SCH (10:27)
[2021-12-20] MEDS: HYDROCHLOROTHIAZIDE 25 MG TABLET (FP) PO SCH (10:27)
[2021-12-20] MEDS: TAMSULOSIN HCL 0.4 MG CAP PO SCH (10:27)
[2021-12-20] MEDS: FAMOTIDINE 20 MG TABLET PO SCH ×2 (10:27→21:11)
[2021-12-20] MEDS: BUDESONIDE/FORMETEROL FUMARATE 160/4.5 mcg INHALER IH SCH ×2 (10:28→21:37)
[2021-12-20] MEDS: METHYL SALICYLATE/MENTHOL OINT 30 GM TUBE TP SCH ×2 (10:28→21:10)
[2021-12-20] MEDS ORDERED: ONDANSETRON *ODT* 4 MG TABLET SL PRN (15:19)
[2021-12-20] MEDS ORDERED: GABAPENTIN 100 MG CAPSULE PO SCH (15:20)
[2021-12-20] MEDS: THIAMINE HCL 100 MG TABLET (FP) PO SCH (21:10)
[2021-12-20] MEDS: SENNOSIDES 8.6MG TABLET (FP) PO SCH (21:10)
[2021-12-20] MEDS: MELATONIN 5 MG TABLETS PO SCH (21:10)
[2021-12-21] MEDS: metFORMIN HCL 500 MG TABLET (FP) PO SCH (06:25)
[2021-12-21] MEDS: methaDONE 80 MG, methaDONE 20 MG PO SCH (06:25)
[2021-12-21] MEDS: sitaGLIPtin PHOSPHATE 50 MG TABLET PO SCH (06:25)
[2021-12-21] MEDS: ACETAMINOPHEN 325 MG TABLET (FP) PO PRN ×2 (06:26→21:19)
[2021-12-21] MEDS ORDERED: GABAPENTIN 100 MG CAPSULE PO SCH (10:00)
[2021-12-21] MEDS: ASPIRIN 81 MG CHEWABLE TABLETS PO SCH (10:06)
[2021-12-21] MEDS: METHYL SALICYLATE/MENTHOL OINT 30 GM TUBE TP SCH ×2 (10:06→21:19)
[2021-12-21] MEDS: DOCUSATE SODIUM 100 MG CAPSULE (FP) PO SCH (10:06)
[2021-12-21] MEDS: PRENATAL VITAMINS W/ FOLIC ACID TABLET (FP) PO SCH (10:07)
[2021-12-21] MEDS: HYDROCHLOROTHIAZIDE 25 MG TABLET (FP) PO SCH (10:07)
[2021-12-21] MEDS: TAMSULOSIN HCL 0.4 MG CAP PO SCH (10:07)
[2021-12-21] MEDS: FAMOTIDINE 20 MG TABLET PO SCH ×2 (10:08→21:18)
[2021-12-21] MEDS: BUDESONIDE/FORMETEROL FUMARATE 160/4.5 mcg INHALER IH SCH ×2 (10:08→21:18)
[2021-12-21] MEDS: MELATONIN 5 MG TABLETS PO SCH (21:17)
[2021-12-21] MEDS: THIAMINE HCL 100 MG TABLET (FP) PO SCH (21:17)
[2021-12-21] MEDS: SENNOSIDES 8.6MG TABLET (FP) PO SCH (21:18)
[2021-12-22] MEDS: methaDONE 80 MG, methaDONE 20 MG PO SCH (06:29)
[2021-12-22] MEDS: sitaGLIPtin PHOSPHATE 50 MG TABLET PO SCH (06:30)
[2021-12-22] MEDS: metFORMIN HCL 500 MG TABLET (FP) PO SCH (06:30)
[2021-12-22] MEDS ORDERED: SENNOSIDES 8.6MG TABLET (FP) PO PRN (08:50)
[2021-12-22] MEDS ORDERED: FAMOTIDINE 20 MG TABLET PO PRN (08:51)
[2021-12-22] MEDS: ASPIRIN 81 MG CHEWABLE TABLETS PO SCH (09:45)
[2021-12-22] MEDS: BUDESONIDE/FORMETEROL FUMARATE 160/4.5 mcg INHALER IH SCH ×2 (09:45→21:10)
[2021-12-22] MEDS: PRENATAL VITAMINS W/ FOLIC ACID TABLET (FP) PO SCH (09:45)
[2021-12-22] MEDS: TAMSULOSIN HCL 0.4 MG CAP PO SCH (09:46)
[2021-12-22] MEDS: METHYL SALICYLATE/MENTHOL OINT 30 GM TUBE TP SCH ×2 (09:46→21:10)
[2021-12-22] MEDS: DOCUSATE SODIUM 100 MG CAPSULE (FP) PO SCH (09:46)
[2021-12-22] MEDS: HYDROCHLOROTHIAZIDE 25 MG TABLET (FP) PO SCH (09:46)
[2021-12-22] MEDS: ACETAMINOPHEN 325 MG TABLET (FP) PO PRN ×2 (09:47→21:09)
[2021-12-22] MEDS: MELATONIN 5 MG TABLETS PO SCH (21:08)
[2021-12-22] MEDS: THIAMINE HCL 100 MG TABLET (FP) PO SCH (21:08)
[2021-12-23] MEDS: methaDONE 80 MG, methaDONE 20 MG PO SCH (06:21)
[2021-12-23] MEDS: sitaGLIPtin PHOSPHATE 50 MG TABLET PO SCH (06:21)
[2021-12-23] MEDS: metFORMIN HCL 500 MG TABLET (FP) PO SCH (06:21)
[2021-12-23] MEDS: TAMSULOSIN HCL 0.4 MG CAP PO SCH (09:36)
[2021-12-23] MEDS: METHYL SALICYLATE/MENTHOL OINT 30 GM TUBE TP SCH ×2 (09:36→21:52)
[2021-12-23] MEDS: DOCUSATE SODIUM 100 MG CAPSULE (FP) PO SCH (09:36)
[2021-12-23] MEDS: ASPIRIN 81 MG CHEWABLE TABLETS PO SCH (09:36)
[2021-12-23] MEDS: HYDROCHLOROTHIAZIDE 25 MG TABLET (FP) PO SCH (09:37)
[2021-12-23] MEDS: BUDESONIDE/FORMETEROL FUMARATE 160/4.5 mcg INHALER IH SCH ×2 (09:37→21:49)
[2021-12-23] MEDS: ACETAMINOPHEN 325 MG TABLET (FP) PO PRN ×2 (09:37→21:50)
[2021-12-23] MEDS: PRENATAL VITAMINS W/ FOLIC ACID TABLET (FP) PO SCH (09:37)
[2021-12-23] MEDS: MELATONIN 5 MG TABLETS PO SCH (21:49)
[2021-12-23] MEDS: THIAMINE HCL 100 MG TABLET (FP) PO SCH (21:49)
[2021-12-24] MEDS: sitaGLIPtin PHOSPHATE 50 MG TABLET PO SCH (06:26)
[2021-12-24] MEDS: methaDONE 80 MG, methaDONE 20 MG PO SCH (06:26)
[2021-12-24] MEDS: metFORMIN HCL 500 MG TABLET (FP) PO SCH (06:26)
[2021-12-24] MEDS: ACETAMINOPHEN 325 MG TABLET (FP) PO PRN ×2 (06:28→21:25)
[2021-12-24] MEDS: METHYL SALICYLATE/MENTHOL OINT 30 GM TUBE TP SCH ×2 (10:18→21:25)
[2021-12-24] MEDS: PRENATAL VITAMINS W/ FOLIC ACID TABLET (FP) PO SCH (10:19)
[2021-12-24] MEDS: HYDROCHLOROTHIAZIDE 25 MG TABLET (FP) PO SCH (10:19)
[2021-12-24] MEDS: TAMSULOSIN HCL 0.4 MG CAP PO SCH (10:19)
[2021-12-24] MEDS: ASPIRIN 81 MG CHEWABLE TABLETS PO SCH (10:19)
[2021-12-24] MEDS: BUDESONIDE/FORMETEROL FUMARATE 160/4.5 mcg INHALER IH SCH ×2 (10:19→21:26)
[2021-12-24] MEDS: MELATONIN 5 MG TABLETS PO SCH (21:25)
[2021-12-24] MEDS: THIAMINE HCL 100 MG TABLET (FP) PO SCH (21:35)
[2021-12-25] MEDS: sitaGLIPtin PHOSPHATE 50 MG TABLET PO SCH (06:40)
[2021-12-25] MEDS: metFORMIN HCL 500 MG TABLET (FP) PO SCH (06:40)
[2021-12-25] MEDS: methaDONE 80 MG, methaDONE 20 MG PO SCH (06:41)
[2021-12-25] MEDS: TAMSULOSIN HCL 0.4 MG CAP PO SCH (09:39)
[2021-12-25] MEDS: ASPIRIN 81 MG CHEWABLE TABLETS PO SCH (09:39)
[2021-12-25] MEDS: HYDROCHLOROTHIAZIDE 25 MG TABLET (FP) PO SCH (09:39)
[2021-12-25] MEDS: PRENATAL VITAMINS W/ FOLIC ACID TABLET (FP) PO SCH (09:40)
[2021-12-25] MEDS: BUDESONIDE/FORMETEROL FUMARATE 160/4.5 mcg INHALER IH SCH ×2 (09:40→21:23)
[2021-12-25] MEDS: METHYL SALICYLATE/MENTHOL OINT 30 GM TUBE TP SCH ×2 (09:40→21:24)
[2021-12-25] MEDS: MELATONIN 5 MG TABLETS PO SCH (21:23)
[2021-12-25] MEDS: THIAMINE HCL 100 MG TABLET (FP) PO SCH (21:23)
[2021-12-26] MEDS: methaDONE 80 MG, methaDONE 20 MG PO SCH (06:24)
[2021-12-26] MEDS: metFORMIN HCL 500 MG TABLET (FP) PO SCH (06:24)
[2021-12-26] MEDS: sitaGLIPtin PHOSPHATE 50 MG TABLET PO SCH (06:24)
[2021-12-26] MEDS: TAMSULOSIN HCL 0.4 MG CAP PO SCH (09:47)
[2021-12-26] MEDS: ASPIRIN 81 MG CHEWABLE TABLETS PO SCH (09:47)
[2021-12-26] MEDS: METHYL SALICYLATE/MENTHOL OINT 30 GM TUBE TP SCH ×2 (09:48→21:29)
[2021-12-26] MEDS: PRENATAL VITAMINS W/ FOLIC ACID TABLET (FP) PO SCH (09:48)
[2021-12-26] MEDS: HYDROCHLOROTHIAZIDE 25 MG TABLET (FP) PO SCH (09:48)
[2021-12-26] MEDS: BUDESONIDE/FORMETEROL FUMARATE 160/4.5 mcg INHALER IH SCH ×2 (09:48→21:29)
[2021-12-26] MEDS: ACETAMINOPHEN 325 MG TABLET (FP) PO PRN (09:49)
[2021-12-26] MEDS: MELATONIN 5 MG TABLETS PO SCH (21:28)
[2021-12-26] MEDS: THIAMINE HCL 100 MG TABLET (FP) PO SCH (21:28)
[2021-12-27] MEDS: sitaGLIPtin PHOSPHATE 50 MG TABLET PO SCH (06:42)
[2021-12-27] MEDS: metFORMIN HCL 500 MG TABLET (FP) PO SCH (06:42)
[2021-12-27] MEDS: methaDONE 80 MG, methaDONE 20 MG PO SCH (06:42)
[2021-12-27] MEDS: ASPIRIN 81 MG CHEWABLE TABLETS PO SCH (09:54)
[2021-12-27] MEDS: METHYL SALICYLATE/MENTHOL OINT 30 GM TUBE TP SCH ×2 (09:54→21:58)
[2021-12-27] MEDS: TAMSULOSIN HCL 0.4 MG CAP PO SCH (09:55)
[2021-12-27] MEDS: PRENATAL VITAMINS W/ FOLIC ACID TABLET (FP) PO SCH (09:55)
[2021-12-27] MEDS: BUDESONIDE/FORMETEROL FUMARATE 160/4.5 mcg INHALER IH SCH ×2 (09:55→21:58)
[2021-12-27] MEDS: HYDROCHLOROTHIAZIDE 25 MG TABLET (FP) PO SCH (09:55)
[2021-12-27] MEDS: THIAMINE HCL 100 MG TABLET (FP) PO SCH (21:58)
[2021-12-27] MEDS: MELATONIN 5 MG TABLETS PO SCH (21:58)
[2021-12-28] MEDS: sitaGLIPtin PHOSPHATE 50 MG TABLET PO SCH (06:31)
[2021-12-28] MEDS: methaDONE 80 MG, methaDONE 20 MG PO SCH (06:31)
[2021-12-28] MEDS: metFORMIN HCL 500 MG TABLET (FP) PO SCH (06:31)
[2021-12-28] MEDS: TAMSULOSIN HCL 0.4 MG CAP PO SCH (09:48)
[2021-12-28] MEDS: HYDROCHLOROTHIAZIDE 25 MG TABLET (FP) PO SCH (09:48)
[2021-12-28] MEDS: PRENATAL VITAMINS W/ FOLIC ACID TABLET (FP) PO SCH (09:48)
[2021-12-28] MEDS: ASPIRIN 81 MG CHEWABLE TABLETS PO SCH (09:48)
[2021-12-28] MEDS: BUDESONIDE/FORMETEROL FUMARATE 160/4.5 mcg INHALER IH SCH ×2 (09:48→21:38)
[2021-12-28] MEDS: METHYL SALICYLATE/MENTHOL OINT 30 GM TUBE TP SCH ×2 (09:49→21:37)
[2021-12-28] MEDS: ACETAMINOPHEN 325 MG TABLET (FP) PO PRN (09:50)
[2021-12-28] MEDS: MELATONIN 5 MG TABLETS PO SCH (21:37)
[2021-12-28] MEDS: THIAMINE HCL 100 MG TABLET (FP) PO SCH (21:38)
[2021-12-29] MEDS: methaDONE 80 MG, methaDONE 20 MG PO SCH (06:26)
[2021-12-29] MEDS: sitaGLIPtin PHOSPHATE 50 MG TABLET PO SCH (06:26)
[2021-12-29] MEDS: metFORMIN HCL 500 MG TABLET (FP) PO SCH (06:26)
[2021-12-29] MEDS: HYDROCHLOROTHIAZIDE 25 MG TABLET (FP) PO SCH (09:44)
[2021-12-29] MEDS: TAMSULOSIN HCL 0.4 MG CAP PO SCH (09:44)
[2021-12-29] MEDS: ASPIRIN 81 MG CHEWABLE TABLETS PO SCH (09:44)
[2021-12-29] MEDS: BUDESONIDE/FORMETEROL FUMARATE 160/4.5 mcg INHALER IH SCH ×2 (09:44→21:40)
[2021-12-29] MEDS: PRENATAL VITAMINS W/ FOLIC ACID TABLET (FP) PO SCH (09:44)
[2021-12-29] MEDS: METHYL SALICYLATE/MENTHOL OINT 30 GM TUBE TP SCH ×2 (09:45→21:39)
[2021-12-29] MEDS: MELATONIN 5 MG TABLETS PO SCH (21:40)
[2021-12-29] MEDS: THIAMINE HCL 100 MG TABLET (FP) PO SCH (21:40)
[2021-12-30] MEDS: methaDONE 80 MG, methaDONE 20 MG PO SCH (06:11)
[2021-12-30] MEDS: sitaGLIPtin PHOSPHATE 50 MG TABLET PO SCH (07:36)
[2021-12-30] MEDS: metFORMIN HCL 500 MG TABLET (FP) PO SCH (07:36)
[2021-12-30] MEDS: ASPIRIN 81 MG CHEWABLE TABLETS PO SCH (09:48)
[2021-12-30] MEDS: TAMSULOSIN HCL 0.4 MG CAP PO SCH (09:49)
[2021-12-30] MEDS: HYDROCHLOROTHIAZIDE 25 MG TABLET (FP) PO SCH (09:49)
[2021-12-30] MEDS: PRENATAL VITAMINS W/ FOLIC ACID TABLET (FP) PO SCH (09:49)
[2021-12-30] MEDS: METHYL SALICYLATE/MENTHOL OINT 30 GM TUBE TP SCH ×2 (09:49→21:11)
[2021-12-30] MEDS: ACETAMINOPHEN 325 MG TABLET (FP) PO PRN (09:50)
[2021-12-30] MEDS: BUDESONIDE/FORMETEROL FUMARATE 160/4.5 mcg INHALER IH SCH ×2 (10:12→21:11)
[2021-12-30] MEDS: THIAMINE HCL 100 MG TABLET (FP) PO SCH (21:11)
[2021-12-30] MEDS: MELATONIN 5 MG TABLETS PO SCH (21:11)
[2021-12-31] MEDS: metFORMIN HCL 500 MG TABLET (FP) PO SCH (06:23)
[2021-12-31] MEDS: methaDONE 80 MG, methaDONE 20 MG PO SCH (06:24)
[2021-12-31] MEDS: sitaGLIPtin PHOSPHATE 50 MG TABLET PO SCH (06:25)
[2021-12-31] MEDS: ASPIRIN 81 MG CHEWABLE TABLETS PO SCH (09:55)
[2021-12-31] MEDS: HYDROCHLOROTHIAZIDE 25 MG TABLET (FP) PO SCH (09:55)
[2021-12-31] MEDS: TAMSULOSIN HCL 0.4 MG CAP PO SCH (09:55)
[2021-12-31] MEDS: METHYL SALICYLATE/MENTHOL OINT 30 GM TUBE TP SCH ×2 (09:55→21:18)
[2021-12-31] MEDS: BUDESONIDE/FORMETEROL FUMARATE 160/4.5 mcg INHALER IH SCH ×2 (09:56→21:16)
[2021-12-31] MEDS: PRENATAL VITAMINS W/ FOLIC ACID TABLET (FP) PO SCH (09:56)
[2021-12-31] MEDS: ACETAMINOPHEN 325 MG TABLET (FP) PO PRN ×2 (09:56→21:18)
[2021-12-31] MEDS: THIAMINE HCL 100 MG TABLET (FP) PO SCH (21:17)
[2021-12-31] MEDS: MELATONIN 5 MG TABLETS PO SCH (21:23)
[2022-01-01] MEDS: methaDONE 80 MG, methaDONE 20 MG PO SCH (06:28)
[2022-01-01] MEDS: sitaGLIPtin PHOSPHATE 50 MG TABLET PO SCH (06:28)
[2022-01-01] MEDS: metFORMIN HCL 500 MG TABLET (FP) PO SCH (06:28)
[2022-01-01] MEDS: ASPIRIN 81 MG CHEWABLE TABLETS PO SCH (09:55)
[2022-01-01] MEDS: BUDESONIDE/FORMETEROL FUMARATE 160/4.5 mcg INHALER IH SCH ×2 (09:56→21:30)
[2022-01-01] MEDS: PRENATAL VITAMINS W/ FOLIC ACID TABLET (FP) PO SCH (09:56)
[2022-01-01] MEDS: TAMSULOSIN HCL 0.4 MG CAP PO SCH (09:56)
[2022-01-01] MEDS: METHYL SALICYLATE/MENTHOL OINT 30 GM TUBE TP SCH ×2 (09:56→21:30)
[2022-01-01] MEDS: HYDROCHLOROTHIAZIDE 25 MG TABLET (FP) PO SCH (09:56)
[2022-01-01] MEDS: ACETAMINOPHEN 325 MG TABLET (FP) PO PRN ×2 (09:57→21:31)
[2022-01-01] MEDS: MELATONIN 5 MG TABLETS PO SCH (21:29)
[2022-01-01] MEDS: THIAMINE HCL 100 MG TABLET (FP) PO SCH (21:29)
[2022-01-02] MEDS: sitaGLIPtin PHOSPHATE 50 MG TABLET PO SCH (06:39)
[2022-01-02] MEDS: metFORMIN HCL 500 MG TABLET (FP) PO SCH (06:39)
[2022-01-02] MEDS: methaDONE 80 MG, methaDONE 20 MG PO SCH (06:40)
[2022-01-02 08:30] VITALS: TEMP 97.7
[2022-01-02] MEDS: PRENATAL VITAMINS W/ FOLIC ACID TABLET (FP) PO SCH (10:09)
[2022-01-02] MEDS: METHYL SALICYLATE/MENTHOL OINT 30 GM TUBE TP SCH (10:09)
[2022-01-02] MEDS: HYDROCHLOROTHIAZIDE 25 MG TABLET (FP) PO SCH (10:09)
[2022-01-02] MEDS: TAMSULOSIN HCL 0.4 MG CAP PO SCH (10:09)
[2022-01-02] MEDS: ASPIRIN 81 MG CHEWABLE TABLETS PO SCH (10:09)
[2022-01-02] MEDS: BUDESONIDE/FORMETEROL FUMARATE 160/4.5 mcg INHALER IH SCH (10:10)
[2022-01-02 12:28] VITALS: BP 142/71; PULSE 71; RESP 18
== END 2022-01-02 13:07 | disposition home or self-care (01) | DRG 895 ==
LOC: YASAS 15:31 → Y3E 15:32
PROVIDERS: ADMIT Allergy & Immunology; ATTEND Psychiatry & Neurology Pain Medicine
PROC: HZ42ZZZ Group Counseling for Substance Abuse Treatment, Cognitive-Behavioral (ICD-10-PCS; principal; 2021-12-06)
DX: F10.20 Alcohol dependence, uncomplicated (principal); F11.20 Opioid dependence, uncomplicated; F14.20 Cocaine dependence, uncomplicated; F13.2 Sedative, hypnotic or anxiolytic-related dependence; F17.210 Nicotine dependence, cigarettes, uncomplicated; I10 Essential (primary) hypertension; J45.909 Unspecified asthma, uncomplicated; K59.00 Constipation, unspecified; E11.42 Type 2 diabetes mellitus with diabetic polyneuropathy; Z79.84 Long term (current) use of oral hypoglycemic drugs; R26.89 Other abnormalities of gait and mobility; Z99.89 Dependence on other enabling machines and devices; Z56.0 Unemployment, unspecified; Z59.00 Homelessness unspecified
CPT/HCPCS: 82962; J0475